=== PATIENT | male | born 1955 | race Caucasian/White ===

== ENCOUNTER 2017-02-13 21:14 | Observation (INO) | payer OTHER ==
[~2017-02-13] VITALS: Ht 175.3 cm; Wt 99.8 kg
[~2017-02-13 21:14] MED LIST: ASA81BEC PO; ATORVASTATIN CA40 MG PO; COQ1050 MG PO; FISH OIL 1,001000 M2 PO; HYDROCODONE-AP1 EA11 PO; HYDROCODONE-AP1 EAC6 PO; KEFLEX500 MG PO; LISINOPRIL10 MG PO; ONE DAILY FOR1 EACH PO; PERCOCET 5-3251 EACH PO; TUMS PO; VITAMIN B-121000 MCG PO; VITAMINC500 PO
[2017-02-13 21:17] VITALS: BP 165/104
[2017-02-13 22:46] LABS: URINE BILIRUBIN NEGATIVE (Negative); URINE BLOOD TRACE (Negative); URINE COLOR YELLOW; URINE GLUCOSE-RANDOM* NEGATIVE (Negative); URINE KETONES NEGATIVE (Negative); URINE NITRITE NEGATIVE (Negative); URINE PROTEIN (DIPSTICK) NEGATIVE (Negative); URINE SPECIFIC GRAVITY >= 1.030 (1.003-1.035)
[2017-02-13 23:06] LABS: BACTERIA 1-9 Few /HPF (None Seen); CASTS None Seen /LPF (None Seen); SQUAMOUS None Seen /LPF (0-3); URINE RBC None Seen /HPF (0-2); URINE WBC 0-5 Rare /HPF (0-5)
[2017-02-13 23:07] LABS: CRYSTALS None Seen /LPF (None Seen)
[2017-02-13 23:25] LABS: HEMATOCRIT 43.5 % (42.0-52.0); HEMOGLOBIN 14.4 gm/dL (14.0-18.0); MCH 30.8 pg (26.0-34.0); MCHC 33.2 g/dL (28.0-37.0); MCV 92.8 fL (80.0-100.0); PLATELET COUNT 264 thou/uL (150-400); RBC 4.69 mil/uL (4.50-6.00); RDW 14.1 % (10.5-14.5); WBC 15.5 thou/uL (4.0-11.0)
[2017-02-13 23:26] VITALS: BP 157/96
[2017-02-13 23:27] LABS: MANUAL DIFF YES
[2017-02-13 23:30] LABS: CALCIUM 8.9 mg/dL (8.5-10.1); CREATININE 1.2 mg/dL (0.7-1.3); POTASSIUM 3.9 mmol/L (3.5-5.1)
[2017-02-13 23:36] LABS: ALBUMIN 3.7 g/dL (3.4-5.0); TOTAL BILIRUBIN 0.4 mg/dL (<0.1-1.0); TOTAL PROTEIN 7.4 g/dL (6.4-8.2)
[2017-02-13 23:46] LABS: ABSOLUTE NEUTROPHILS 12.4 thou/uL (1.4-8.2); TOTAL CELL COUNT 100
[2017-02-14 00:35] VITALS: BP 125/79
[2017-02-14 08:07] VITALS: BP 129/75
[2017-02-14 11:00] VITALS: BP 129/75
== END 2017-02-14 11:28 | disposition home or self-care (01) ==
LOC: ER 21:14 → EROBS 23:07 → 4E 23:07
PROVIDERS: Physician Assistant
DX: N20.2 Calculus of kidney with calculus of ureter (principal); N39.0 Urinary tract infection, site not specified; D72.829 Elevated white blood cell count, unspecified; Z87.891 Personal history of nicotine dependence; Z72.89 Other problems related to lifestyle